=== PATIENT | male | born 1950 ===

== ENCOUNTER 2022-10-08 12:17 | Day surgery (SDC) | payer MEDICARE, OTHER, SELFPAY ==
--- NOTE | 2022-10-08 | PATH_ITS ---
[facility] Accession Number: [id number] No. of containers..01 Tissue . 01 Material submitted: . sigmoid colon - SIGMOID . 01 Diagnosis: Sigmoid Colon, Biopsy: Hyperplastic polyp. MRV 10/14/2022 1343 Local . 01 Electronically signed: . Ana Lilia Singh MD, Pathologist NPI- [id number] . 01 Gross description: . SIGMOID: Received in formalin are 2 fragment(s) of robert, soft tissue measuring 0.2 x 0.1 x 0.1 cm to 0.3 x 0.3 x 0.2 cm submitted entirely in 1 cassette(s) /ANTONIO 10/09/2022 0159 Local . 01 Pathologist provided ICD-10: K63.5 . 01 CPT . 130619 Specimen Comment: A courtesy copy of this report has been sent to [phone] Performed at: 01 [facility] [address] [place] [address], [place], [place] [id number] MD Bob Valle MD Phone: [phone]
[2022-10-08 13:46] VITALS: BP 117/72; PULSE 58; RESP 16; TEMP 36.4; O2SAT 95; BMI 26.6
--- NOTE | 2022-10-08 14:35 | PM.HP.1 ---
History of Present Illness History of Present Illness Date Patient Seen: 10/08/22 Time Patient Seen: 14:35 Chief complaint: Colonoscopy Narrative: The patient presents for colorectal screening. Previously normal colonoscopy 10 years ago.. No personal or family history of colon cancer. On further history denies any recent gastrointestinal symptoms. No nausea, vomiting, abdominal pain, loss of appetite, unexplained weight loss, change in bowel habits, or blood per rectum. Patient History Medical History Acquired clavicle deformity Cataract Surgical History History of nephrectomy, left Family & Social History Social History: household members spouse Tobacco & Substance use: Tobacco type cigarettes Smoking Status Current every day smoker Smoking packs per day 1 alcohol intake never Substance Use Type marijuana Meds Home Medications and Allergies Home Medications Medication Instructions Recorded Confirmed Type atorvastatin 10 mg PO 3XD 10/08/22 10/08/22 History Exam Vital Signs (past 8 hours): - 10/08/22 13:46 Temperature 97.5 F L Pulse Rate 58 L Respiratory Rate 16 Blood Pressure 117/72 Pulse Oximetry 95 Narrative Exam Narrative: General adult male alert oriented no acute distress Assessment & Plan Assessment & Plan narrative: The patient requires colorectal screening and colonoscopy is recommended. Technical details were discussed. Risks, benefits, alternatives explained. Risks including but not limited to myocardial infarction, aspiration, bleeding, pain, missed lesion, incomplete examination, need for further radiographic studies, colonic perforation, and need for major abdominal surgery were discussed. All questions were answered to their satisfaction, and they are in agreement with this plan. Time Spent With Patient Critical Care time: I spent a total of [] minutes of critical care time on this patient's care today; this time is exclusive of procedural time.
--- NOTE | 2022-10-08 14:37 | PM.OP.COLON ---
Operative Date/Time/Diagnoses Date of procedure: 10/08/22 Time of procedure: 14:37 Pre-op diagnosis: Colorectal screening Post-op diagnosis: same Procedure & Clinicians Study performed: Colonoscopy Same procedure as scheduled: Yes Indications: Colorectal screening Surgeon: Andrea Mitchell Procedure Notes Procedure in detail: The history and physical was performed/updated and the patient is ASA class is 2. The procedure was discussed in detail with the patient. Potential risks complications including infection, bleeding, missed diagnosis, perforation, need for surgery, and were explained. Their questions were answered and informed consent was obtained. Patient was brought to the procedure room and placed standard monitoring equipment. The patient's vital signs were monitored continuously throughout the entire procedure. Prior to starting time-out was performed. The patient was placed in the left lateral recumbent position. Procedural sedation was administered by anesthesia. Examination began with a thorough inspection of the perianal area there was no evidence of fissures, fistulae, external hemorrhoids or cutaneous malignancy. The colonoscopy scope was then placed into the anal canal and was advanced to the cecum, which was identified by the ileocecal valve, the appendiceal orifice and the confluence of the taenia. The scope was then slowly withdrawn examining colon thoroughly in all directions, irrigating it of any residual stool. -sigmoid colon 5 mm polyp removed with biopsy forceps The patient tolerated the procedure well. They will be discharged once criteria are met. The prep was of good/excellent quality. The withdrawl time was 8 minutes. Specimen(s): other (Sigmoid colon polyp) Impression: Colonic polyp Post-procedure Recommendations: High fiber diet Plan for aftercare: Follow-up is dependent on pathology findings Disposition: same day surgery
[2022-10-08 15:04] VITALS: BP 84/52; PULSE 63; RESP 10; TEMP 36.1; O2SAT 92
[2022-10-08 15:06] VITALS: BP 90/53; PULSE 60; RESP 8; O2SAT 92
[2022-10-08 15:13] VITALS: BP 113/71; PULSE 63; RESP 18; TEMP 36.3; O2SAT 96
[2022-10-08 15:18] VITALS: BP 113/67; PULSE 59; RESP 20; O2SAT 96
== END 2022-10-08 15:45 | disposition home or self-care (01) ==
PROVIDERS: Referring Provider Surgery; Visit Provider Surgery
PROC: 0DJD8ZZ Inspection of Lower Intestinal Tract, Via Natural or Artificial Opening Endoscopic (ICD-10-PCS; CPT 45378; principal; 2022-10-08 14:15)
DX: Z12.11 Encounter for screening for malignant neoplasm of colon (principal); K63.5 Polyp of colon
CPT/HCPCS: 45380; J2704; J3010